=== PATIENT | male | born 1995 | race Caucasian/White ===

== ENCOUNTER 2021-01-07 04:10 | Emergency (ER) | payer BC ==
--- OUTSIDE RECORDS SUMMARY | 2021-01-07 04:12 | XMS REPORT | Continuity of Care Document ---
:1995 Author Organization [facility] Address [address] [place] [address] Dr. Jones [address] [place] [id number] Care Team Providers Name Role Phone Unavailable Unavailable Unavailable Problems This patient has no known problems. Allergies, Adverse Reactions, Alerts This patient has no known allergies or adverse reactions. Medications This patient has no known medications. Procedures This patient has no known procedures. Results This patient has no known results.
--- NOTE | 2021-01-07 04:33 | ER ---
Nurse's Notes [facility] Name: Darion Noel Age: 25 yrs Sex: Male : 1995 Arrival Date: 01/07/2021 Time: 04:19 Bed Waiting Private MD: Diagnosis: Rash and other nonspecific skin eruption Presentation: 01/07 04:25 Chief complaint: Patient states: heat rash on back since 12pm yesterday, reports em burning and redness, denies fever. Coronavirus screen:. Ebola Screen: Patient negative for fever greater than or equal to 101.5 degrees Fahrenheit, and additional compatible Ebola Virus Disease symptoms Patient denies exposure to infectious person. Patient denies travel to an Ebola-affected area in the 21 days before illness onset. No symptoms or risks identified at this time. Initial Sepsis Screen: Does the patient meet any 2 criteria? No. Patient's initial sepsis screen is negative. Does the patient have a suspected source of infection? No. Patient's initial sepsis screen is negative. Risk Assessment: Do you want to hurt yourself or someone else? Patient reports no desire to harm self or others. Onset of symptoms was January 07, 2021. 04:25 Method Of Arrival: Ambulatory em 04:25 Acuity: EARLENE 5 em Historical: - Allergies: 04:29 No Known Allergies; em - PMHx: 04:29 None; em - PSHx: 04:29 None; em - Immunization history:: Client reports having NOT received the Covid vaccine. - Social history:: Smoking status: Patient denies any tobacco usage or history of. - Family history:: not pertinent. Screenin:30 Abuse screen: Denies threats or abuse. Nutritional screening: No deficits noted. em Tuberculosis screening: No symptoms or risk factors identified. Fall Risk None identified. Assessment: 04:30 General: Appears in no apparent distress. comfortable, Behavior is calm, cooperative, em appropriate for age, Denies fever. Pain: Complains of pain in back. Neuro: Level of Consciousness is awake, alert, obeys commands, Oriented to person, place, time, situation, Appropriate for age. Cardiovascular: Capillary refill < 3 seconds Patient's skin is warm and dry. Respiratory: Airway is patent Respiratory effort is even, unlabored, Respiratory pattern is regular, symmetrical. Derm: Skin is intact, Rash noted that is red, raised, on right scapular area and right subscapular area. Musculoskeletal: Capillary refill < 3 seconds, Range of motion: intact in all extremities. Vital Signs: 04:25 BP 151 / 93; Pulse 75; Resp 18; Temp 97.5; Pulse Ox 100% on R/A; Weight 90.72 kg; em Height 5 ft. 11 in. (180.34 cm); 04:25 Body Mass Index 27.89 (90.72 kg, 180.34 cm) em ED Course: 04:19 Patient arrived in ED. bp1 04:29 Triage completed. em 04:29 Arm band placed on. em 04:30 Joe Umanzor, SHARRI is Primary Nurse. em 04:30 Patient has correct armband on for positive identification. em 04:30 No provider procedures requiring assistance completed. Patient did not have IV access em during this emergency room visit. 04:32 Madai Day MD is Attending Physician. ma2 Administered Medications: No medications were administered Outcome: 04:32 Discharge ordered by . ma2 04:35 Discharged to home ambulatory. em 04:35 Condition: stable 04:35 Discharge instructions given to patient, Instructed on discharge instructions, follow up and referral plans. medication usage, Demonstrated understanding of instructions, follow-up care, medications, Prescriptions given X 2. 04:36 Patient left the ED. em Signatures: Joe Umanzor, SHARRI RN em Madai Day MD MD maMargaret Torres bp1
--- NOTE | 2021-01-07 04:33 | EDPHYS ---
Physician Documentation [facility] Name: Darion Noel Age: 25 yrs Sex: Male : 1995 Arrival Date: 01/07/2021 Time: 04:19 Bed Waiting Private MD: ED Physician Madai Day HPI: 01/07 04:30 This 25 yrs old Male presents to ER via Ambulatory with complaints of Rash. ma2 04:30 The patient's rash thought to be caused by allergies. The rash is located on the back. ma2 Associated signs and symptoms: Pertinent positives: burning sensation, Pertinent negatives: itching, Pain swelling of throat. Severity of symptoms: At their worst the symptoms were mild in the emergency department the symptoms are unchanged. The patient has not experienced similar symptoms in the past. Historical: - Allergies: 04:29 No Known Allergies; em - PMHx: 04:29 None; em - PSHx: 04:29 None; em - Immunization history:: Client reports having NOT received the Covid vaccine. - Social history:: Smoking status: Patient denies any tobacco usage or history of. - Family history:: not pertinent. ROS: 04:30 Constitutional: Negative for fever, chills, and weight loss. ma2 04:30 All other systems are negative. Exam: 04:30 Constitutional: This is a well developed, well nourished patient who is awake, alert, ma2 and in no acute distress. ENT: Nares patent. No nasal discharge, no septal abnormalities noted. Tympanic membranes are normal and external auditory canals are clear. Oropharynx with no redness, swelling, or masses, exudates, or evidence of obstruction, uvula midline. Mucous membranes moist. Neck: Trachea midline, no thyromegaly or masses palpated, and no cervical lymphadenopathy. Supple, full range of motion without nuchal rigidity, or vertebral point tenderness. No Meningismus. Chest/axilla: Normal chest wall appearance and motion. Nontender with no deformity. No lesions are appreciated. Cardiovascular: Regular rate and rhythm with a normal S1 and S2. No gallops, murmurs, or rubs. Normal PMI, no JVD. No pulse deficits. Respiratory: Lungs have equal breath sounds bilaterally, clear to auscultation and percussion. No rales, rhonchi or wheezes noted. No increased work of breathing, no retractions or nasal flaring. Abdomen/GI: Soft, non-tender, with normal bowel sounds. No distension or tympany. No guarding or rebound. No evidence of tenderness throughout. Back: No spinal tenderness. No costovertebral tenderness. Full range of motion. Skin: diffuse redness and hives over the upper back, fade with pressure.. otherwise Warm, dry with normal turgor. Normal color with no rashes, no lesions, and no evidence of cellulitis. MS/ Extremity: Pulses equal, no cyanosis. Neurovascular intact. Full, normal range of motion. Neuro: Awake and alert, GCS 15, oriented to person, place, time, and situation. Cranial nerves II-XII grossly intact. Motor strength 5/5 in all extremities. Sensory grossly intact. Cerebellar exam normal. Normal gait. Vital Signs: 04:25 BP 151 / 93; Pulse 75; Resp 18; Temp 97.5; Pulse Ox 100% on R/A; Weight 90.72 kg; em Height 5 ft. 11 in. (180.34 cm); 04:25 Body Mass Index 27.89 (90.72 kg, 180.34 cm) em MDM: 04:30 Differential diagnosis: allergic reaction, heat rash, vs eczema, vs rash. Data ma2 reviewed: vital signs, nurses notes. Counseling: I had a detailed discussion with the patient and/or guardian regarding: the historical points, exam findings, and any diagnostic results supporting the discharge/admit diagnosis, the presence of at least one elevated blood pressure reading (>120/80) during this emergency department visit, the need for outpatient follow up. 04:32 Patient medically screened. ma2 Administered Medications: No medications were administered Disposition Summary: 01/07/21 04:32 Discharge Ordered Location: Home ma2 Condition: Stable ma2 Diagnosis - Rash and other nonspecific skin eruption ma2 Followup: ma2 - With: Private Physician - When: Tomorrow - Reason: Recheck today's complaints, Continuance of care Discharge Instructions: - Discharge Summary Sheet ma2 - Rash, Adult, [id number] ma2 Forms: - Work release form em - Medication Reconciliation Form ma2 - Thank You Letter ma2 - Antibiotic Education ma2 - Prescription Opioid Use ma2 Prescriptions: - Benadryl 25 mg Oral Capsule - take 1 capsule by ORAL route every 6 hours As needed; 30 tablet; Refills: 0, ma2 Product Selection Permitted - Medrol (Bryce) 4 mg Oral Tablets, Dose Pack - take 1 tablet by ORAL route as directed - follow package instructions; 1 ma2 packet; Refills: 0, Product Selection Permitted - Pepcid 20 mg Oral Tablet - take 1 tablet by ORAL route once daily for 10 days; 10 tablet; Refills: 0, ma2 Product Selection Permitted Signatures: Joe Umanzor RN RN em Alzahri, Mohammad, MD MD ma2
[2021-01-07 04:41] VITALS: BP 151/93; TEMP 97.5; O2SAT 100
== END 2021-01-07 04:36 | disposition home or self-care (01) ==
LOC: ER 04:10
DX: R21 Rash and other nonspecific skin eruption (principal)
CPT/HCPCS: 99282